=== PATIENT | female | born 1965 | race Caucasian/White ===

== ENCOUNTER → 2016-06-03 | Outpatient (CLI) | payer OTHER ==
[~2016-06-03] MED LIST: AMITRYPTYLINE PO; BACTRIM DS TABL1 TA1 PO; BENZONATATE PO; BUSPIRONE HCL10 MG PO; CELEXA PO; CIPRO PO; CLONIDINE PO; COMBIVENT INH14.7 GM INH; CRESTOR PO; CYMBALTA PO; DELSYM30 MG/5 ML PO; DOXYCYCLINE150 MG PO; FLEXERIL PO; FLEXERIL10 MG PO; GRALISE300 MG PO; IBUPROFEN800 MG PO; KLONOPIN PO; KLONOPIN1 MG PO; KLOR-CON PO; LISINOPRIL PO; LISINOPRIL-HCTZ1 T16 PO; LORTAB 10/500 T1 TAB PO; LORTAB 5/500 TA1 TA1 PO; LORTAB 7.5-5001 TAB PO; MEDROL PO; MOTRIN400 MG PO; NEURONTIN PO; NEURONTIN300 MG PO; OMNICEF300 MG PO; PERCOCET10 PO; PERCOCET5/325 PO; PERCOCET7.5 PO; PHENERGAN PO; PHENERGAN25 MG PO; PREDNISONE PO; PRINIVIL20 M1 PO; PROZAC10 M1 PO; REMERON PO; TRAZODONE PO; TRIPHASIL-281 TAB PO; ULTRAM PO; VICODIN 5/500 T1 TAB PO; VISTARIL PO; WALGREENS PHARMACY; ZANAFLEX PO; ZOLOFT PO; ZYPREXA15 MG PO
--- NOTE | ~2016-06-03 | MR112 ---
[facility] A Service of [facility] & [facility] RADIOLOGY TEXT RESULTS PATIENT: JOSE ESPINAL LOCATION: [facility] : 67 UNIT #: [id number] AGE: [address]: Berto Burger II, MD SEX: F ORDER DR: [id number] [place] [id number] MR#: [id number] Acc #: [id number] NAME: JOSE ESPINAL : 1965 SEX: F STUDY DATE/TIME: 06/03/2016 15:11 UNIT: [facility] ROOM: STUDY DESCRIPTION: MR Lumbar WWo Contrast Attending Physician: Berto Burger II., M.D. Referring Physician: Berto Burger II., M.D. Ordering Physician: Berto Burger II., M.D. Primary Care Physician: Julien Mcginnis M.D. MRI CENTER REPORT This report is preliminary unless electronic signature is present. EXAM MRI of the lumbar spine with and without INDICATIONS No known injury or surgery; complains of chronic low back pain for 14 years, left greater than right leg numbness worse recently. No cancer history. COMMENT MRI of the lumbar spine was performed prior to and following intravenous administration of 15 mL of MultiHance. COMPARISON The comparison MRI is from 2006 but I do not have a report. Plain film comparison from 2008. FINDINGS Sagittal alignment is normal. There is disc desiccation in particular at L4-5 to a lesser extent L5-S1 with moderate loss of intervertebral disc height at the 4-5 level with associated predominantly type 2 marrow endplate degenerative change. The degenerative disc disease at the 4-5 level is particularly progressed from prior exam. Additionally there is now multiple level Schmorl's node formation also progressed from prior study. The conus medullaris terminates at L1 and is normal. Following contrast administration, there is no pathologic intracanalicular enhancement. Incidental note made of a tiny fatty filum terminale. For the purpose of this study, the spine is numbered assuming that the lowest axial images are at the L5-S1 level. Using this numbering, at L1-2, there is minor posterior disc bulge. No canal stenosis or foraminal impingement. [facility]. [facility] A Service of [facility] & [facility] RADIOLOGY TEXT RESULTS PATIENT: JOSE ESPINAL LOCATION: [facility] : 67 UNIT #: [id number] AGE: [address]: Berto Burger II, MD SEX: F ORDER DR: At L2-3, there is minor posterior disc bulge but no canal or foraminal impingement. At L3-4, mild bilateral facet degenerative change. Minor posterior disc bulge. No canal or foraminal impingement. At L4-5, there is mild bilateral facet degenerative change, mild ligamentum flavum thickening. Bczq-yd-lngwqezb concentric disc bulging, endplate spondylosis with superimposed anterior extrusion and a posterior broad protrusion. Combination of findings result in jgkz-pi-rotkniob canal stenosis with mass effect on right greater than left lateral recess. Disc protrusion extends into the inferior foramina and there is jzcs-il-igxlebpg left and right-sided foraminal narrowing. At L5-S1, there is mild broad-based posterior disc bulge. Mild facet hypertrophy on the right. No canal stenosis. No foraminal impingement. The patient has a very atrophic right kidney. Please correlate further clinically. This is partly seen. The appearance of the right kidney is changed when comparison is made to 2006. If this is not a known diagnosis, I would suggest a followup evaluation. Patient has been seen by Dr. Brown, with a renal ultrasound performed 08/31/2015, and please see those results. IMPRESSION 1. Interval progression of lumbar degenerative disease since 2006, particularly at the L4-5 level where there is now slar-da-wrtafkzk canal stenosis and mass effect on right greater than left lateral recess. Please refer to the byckl-ft-pyhyp discussion above. 2. Interval development of marked volume loss right kidney since the study of 2006. There is an ultrasound from 08/31/2015, which documents this. Please confirm that this is a known clinical diagnosis. Dictated by... Berta Casey M.D. THIS IS AN ELECTRONICALLY VERIFIED REPORT Berta Casey M.D. at 06/04/2016 4:15 PM SAC/to TD: 06/04/2016 12:38 JOB #: [id number] MRI CENTER REPORT Page 1 of 1
== END | disposition home or self-care (01) ==
LOC: SMRI 14:43
DX: R20.0 Anesthesia of skin (principal); M51.36 Other intervertebral disc degeneration, lumbar region; M48.26 Kissing spine, lumbar region
CPT/HCPCS: 72158; A9581